=== PATIENT | female | born 1990 | race Caucasian/White ===

== ENCOUNTER → 2019-06-10 | Outpatient (CLI) | payer OTHER ==
[2019-06-10 17:42] LABS: BASO % 0.6 % (0.0-1.0); EOS % 0.4 % (0.0-3.0); HEMATOCRIT 35.8 % (36.0-47.0); HEMOGLOBIN 12.1 g/dl (12.0-15.5); LYMPH # 2.1 10^3/uL (1.5-5.0); LYMPH % 31.5 % (24.0-44.0); MEAN CORPUSCULAR HEMOGLOBIN 32.9 pg (27.0-33.0); MEAN CORPUSCULAR HGB CONC 33.8 g/dl (32.0-36.5); MEAN CORPUSCULAR VOLUME 97.3 fl (80.0-96.0); MONO # 0.5 10^3/uL (0.0-0.8); NEUTROPHILS # 4.1 10^3/uL (1.5-8.5); NEUTROPHILS % 60.2 % (36.0-66.0); PLATELET COUNT, AUTOMATED 275 10^3/uL (150-450); RED BLOOD COUNT 3.68 10^6/uL (4.00-5.40); WHITE BLOOD COUNT 6.7 10^3/uL (4.0-10.0)
[2019-06-10 18:09] LABS: ALT/SGPT 18 U/L (12-78); BILIRUBIN,TOTAL 0.2 MG/DL (0.2-1.0); CREATININE FOR GFR 0.46 MG/DL (0.55-1.30); GLOMERULAR FILTRATION RATE > 60.0 (>60); LDH LACTATE DEHYDROGENASE 149 U/L (84-246); URIC ACID 2.8 MG/DL (2.6-6.0)
[2019-06-10 18:45] LABS: TOTAL PROTEIN,RANDOM URINE 13.6 MG/DL (0.0-12.0)
[2019-06-11 10:26] LABS: RUBELLA IgG QUALITATIVE SUSCEPTIBLE (IMMUNE)
[2019-06-11 10:54] LABS: HEPATITIS C VIRUS ABY INDEX < 0.0 INDEX (<0.8)
[2019-06-11 10:56] LABS: HIV 1&2 SCREEN CENTAUR NEGATIVE (NEGATIVE)
== END ==
LOC: M PLALAB 15:18
PROVIDERS: ATTEND Advanced Practice Midwife
DX: O34.211 Maternal care for low transverse scar from previous cesarean delivery (principal); Z3A.00 Weeks of gestation of pregnancy not specified

== ENCOUNTER → 2019-09-04 | Outpatient (REF) | payer OTHER | LOC: M PLALAB 10:39 | PROVIDERS: ATTEND Advanced Practice Midwife | DX: O34.211 Maternal care for low transverse scar from previous cesarean delivery (principal) ==

== ENCOUNTER → 2019-11-04 | Outpatient (REF) | payer OTHER ==
[~2019-11-04] MED LIST: IBUP80TA PO; PERCOCET PO
== END ==
LOC: M PLALAB 15:13
PROVIDERS: ATTEND Advanced Practice Midwife
DX: O34.211 Maternal care for low transverse scar from previous cesarean delivery (principal)

== ENCOUNTER 2019-11-29 07:44 | Inpatient (IN) | payer MEDICAID, OTHER ==
[2019-11-29] VITALS (24 sets, daily range): BP systolic 104–144; BP diastolic 62–94
[~2019-11-29] VITALS: Ht 165.1 cm; Wt 94.1 kg
[2019-11-29] MEDS ORDERED: LR 1,000 ML IV SCH (08:59)
[2019-11-29 10:16] LABS: HEMATOCRIT 36.5 % (36.0-47.0); HEMOGLOBIN 12.9 g/dl (12.0-15.5); MEAN CORPUSCULAR HEMOGLOBIN 33.6 pg (27.0-33.0); MEAN CORPUSCULAR HGB CONC 35.3 g/dl (32.0-36.5); MEAN CORPUSCULAR VOLUME 95.1 fl (80.0-96.0); PLATELET COUNT, AUTOMATED 261 10^3/uL (150-450); RED BLOOD COUNT 3.84 10^6/uL (4.00-5.40); WHITE BLOOD COUNT 6.5 10^3/uL (4.0-10.0)
--- NOTE | 2019-11-29 10:59 | HPEPDOC ---
Obstetrical History & Physical General Date of Admission Nov 29, 2019 at 07:44 History of Present Illness 29-year-old 3, para 1 presents at 40 weeks 1 day estimated gestational age of 0711/28/2019 for induction of labor. Her course is been unremarkable. She initiated care first trimesters been appropriate throughout. Her history significant for severe preeclampsia, HELLP syndrome with her previous . She had a emergency section at 34 weeks for placenta abruption. She is been counseled throughout her regarding her mode of delivery. She has been counseled regarding trial labor after section versus elective repeat section and has expressed desire to proceed with trial labor after section. Chief Complaint: Induction of labor Information Provided By: Patient Age: 29 : 3 Pre-term: 1 Livin Care Care: Good Care Dating Final EDC: Nov 28, 2019 Final EDC by: LMP LMP: Mar 03, 2019 EGA at Admission: 40 Past Medical History Past Obstetrical History : Past Obstetrical History: Multigravida Type of Delivery: Ceserean section Complications: Yes (HELLP syndrome and placental abruption) Past Medical History Medical History History of kidney stones Surgical History: section Social History Marital Status: Single Psychosocial History: No pertinent psych hx * Smoker: non-smoker Alcohol: Denies Drugs: denies Allergies Coded Allergies: No Known Allergies (Verified , 11/03/09) Physical Examination Physical Examination GENERAL: Alert and oriented times three. BREAST: . ABDOMEN: Gravid and non-tender to touch. FETUS: Is vertex (VTX) by sterile vaginal examination (SVE), fetus is vertex (VTX) by Rudy. HEART RATE: Regular rate and rhythm. LUNGS: Clear to auscultation (CTA). Vital Signs/I&O Vital Signs Date Time Temp Pulse Resp B/P (MAP) Pulse Ox O2 Delivery O2 Flow Rate FiO2 11/29/19 09:29 80 18 121/82 (95) 11/29/19 08:07 97.6 Laboratory Data 24H LABS Laboratory Tests 2 11/29/19 07:53: Serology Scanned Report Hepatitis B Testing 11/29/19 09:50: Nucleated Red Blood Cells % (auto) 0.0 CBC/BMP Laboratory Tests 11/29/19 09:50 Pertinent Laboratoy Data Blood Type: A+ RBC Antibody Screen: Negative HIV: Negative Hepatitis C: Negative Rubella: Nonreactive Anatomy Ultrasound Placenta Location: Anterior Normal Anatomy: Yes Placenta Previa: No Vaginal Examination Dilation: None Station: -3 Cervical Consistency: Medium Cervical Position: Posterior Presentation: Cephalic presentation Assessment Variability: Moderate Accelerations: Positive Tocometer Contractions: Yes Frequency: irregular Assessment/Plan Assessment 29-year-old 3, para 1 at 40 weeks 1 day estimated gestational age by last which. Here for induction labor. Reassuring status. History of prior section. Patient's been thoroughly counseled regards, induction labor, also counseled patient on mode of delivery to include section versus trial labor. I discussed medications as well as procedures performed in labor and delivery. Discuss emergency surgery, blood products anesthesia and patient desires to proceed with admission and consents to the above. Plan Admit and orient. Field Gauger and consent. Diet: Nothing by mouth. Group B Streptococcus (GBS) negative. Labs and intravenous (IV) per unit protocol. Counseled on Pitocin and induction of labor (IOL). Anticipate normal spontaneous delivery (). C-S as appropriate. PINKY SUMMERS MD. Nov 29, 2019 10:59
[2019-11-29] MEDS ORDERED: OXYTOCIN DRIP 30 UNITS in IV 1 EA IV SCH (11:00)
[2019-11-29] MEDS: LR 1,000 ML IV SCH ×2 (17:31→18:54)
[2019-11-30] VITALS (63 sets, daily range): BP systolic 107–154; BP diastolic 59–100
[2019-11-30] MEDS: LR 1,000 ML IV SCH ×3 (02:54→21:09)
--- NOTE | 2019-11-30 11:34 | IPNPDOC ---
Obstetrical Progress Note Date of Service Nov 29, 2019 Subjective Late entry note 19311/29/19 Patient is doing well without complaints. Pitocin at 12 milliunits. Objective Vital Signs Date Time Temp Pulse Resp B/P (MAP) Pulse Ox O2 Delivery O2 Flow Rate FiO2 11/30/19 11:07 98.2 70 16 142/79 (100) Assessment Variability: Moderate Accelerations: Positive Heart Rate Tracing: Category I Tocometer Contractions: Yes Frequency: regular Sterile Vaginal Examination Dilation: 1cm Effacement (%): 30% Station: -3 Cervical Consistency: Medium Cervical Position: Posterior Postion/Presentation: Cephalic presentation (Cook's catheter place and 80/30 mL) Assessment and Plan Age: 29 : 3 Livin Status: Reassuring Group B Streptococcus: Negative Anticipate: Other () PINKY SUMMERS MD. Nov 30, 2019 11:34
--- NOTE | 2019-11-30 11:35 | IPNPDOC ---
Obstetrical Progress Note Date of Service Nov 30, 2019 Subjective Stuart catheter out approximately hour ago. Reports pain 6 out of 10. Objective Vital Signs Date Time Temp Pulse Resp B/P (MAP) Pulse Ox O2 Delivery O2 Flow Rate FiO2 11/30/19 11:07 98.2 70 16 142/79 (100) Assessment Variability: Moderate Accelerations: Positive Heart Rate Tracing: Category I Tocometer Contractions: Yes Frequency: regular Sterile Vaginal Examination Dilation: 3 cm Effacement (%): 70% Station: -3 (AROM clear fluid) Cervical Consistency: Medium Cervical Position: Middle Postion/Presentation: Cephalic presentation Assessment and Plan Age: 29 : 3 Term: 1 Status: Reassuring Group B Streptococcus: Negative Anticipate: Other () PINKY SUMMERS MD. Nov 30, 2019 11:35
[2019-11-30] MEDS ORDERED: BUTORPHANOL 2 MG/ML INJ (J0595) IV ONE ×2 (13:15)
[2019-11-30] MEDS ORDERED: PROMETHAZINE INJ 25 MG/ML VIAL (J2550) IV ONE ×2 (13:15)
[2019-11-30] MEDS ORDERED: FENTANYL 2MCG/ML ROPIVACAINE 0.2% IN 0.9% NACL 100ML IVBAG As Ordered ONE (16:51)
[2019-11-30] MEDS ORDERED: ONDANSETRON 4MG/2ML VIAL IV PRN ×3 (18:30→21:29)
[2019-11-30] MEDS ORDERED: FENTANYL/ROPIVACAINE/NACL BAG 100 ML EPIDURAL SCH (18:30)
[2019-11-30] MEDS ORDERED: ePHEDrine SULFATE 25 MG/5 ML(5MG/ML) SYRINGE IV PRN (18:30)
[2019-11-30] MEDS ORDERED: NALOXONE INJ 0.4MG/1ML VIAL (J2310 PER 1MG) IV PRN ×3 (18:30→21:29)
[2019-11-30] MEDS ORDERED: REFRIGERATOR IV KEYS XX PRN (18:30)
[2019-11-30] MEDS ORDERED: LACTATED RINGER'S 1000 ML IV PRN (18:30)
[2019-11-30] MEDS ORDERED: EPIDURAL/PCA KEYS XX PRN (18:30)
[2019-11-30] MEDS ORDERED: EPIDURAL COMMENT XX SCH (18:30)
[2019-11-30] MEDS ORDERED: diphenhydrAMINE 50MG/ML VIAL (J1200) IV PRN ×2 (18:30→21:29)
--- NOTE | 2019-11-30 20:29 | IPNPDOC ---
Obstetrical Progress Note Date of Service Nov 30, 2019 Subjective Comfortable now following epidural. Her last exam she was 5-6 cm, 75% efface, -3 station. Pitocin currently at 20 milliunits Objective Vital Signs Date Time Temp Pulse Resp B/P (MAP) Pulse Ox O2 Delivery O2 Flow Rate FiO2 11/30/19 18:13 97.4 75 18 120/65 (83) Assessment Heart Rate (FHR): 120 Variability: Moderate Accelerations: Positive Heart Rate Tracing: Category I Tocometer Contractions: Yes Frequency: regular Sterile Vaginal Examination Dilation: 6 cm Effacement (%): 70% Station: -3 Cervical Consistency: Soft Cervical Position: Anterior Postion/Presentation: Cephalic presentation Assessment and Plan Age: 29 : 3 Livin Status: Reassuring Group B Streptococcus: Negative Anticipate: Section Additional Comments Cervical exam unchanged after approximately 4 hours despite adequate contractions. Discussed these findings with the patient. Discussed options to include further induction with Pitocin at 20 milliunits and with reevaluation in 2 hours versus proceeding with section for arrested dilation/failed TOLAC. At the consultation. Patient desires proceed with section. Anesthesia notified and OR team mobilize PINKY SUMMERS MD. Nov 30, 2019 20:29
[2019-11-30] MEDS ORDERED: ceFAZolin SOD 2 GM in IV 1 EA IV ONE (20:45)
[2019-11-30] MEDS ORDERED: AZITHROMYCIN INJ 500 MG, VIAL MATE ADAPTER 1 EACH in D5W 250 ML IV ONE (20:45)
[2019-11-30] MEDS ORDERED: ceFAZolin 2 GM/D5W 50 ML IV BAG (J0690 PER 500MG) As Ordered ONE (20:48)
[2019-11-30] MEDS ORDERED: BICITRA 30ML SOLN UDC As Ordered ONE (20:48)
[2019-11-30] MEDS ORDERED: AZITHROMYCIN INJ 500MG VIAL (J0456 PER 500MG) As Ordered ONE (20:49)
[2019-11-30] MEDS ORDERED: MORPHINE PRES-FREE INJ 10 MG/10 ML VIAL (J2274) As Ordered ONE (20:52)
[2019-11-30] MEDS ORDERED: OXYTOCIN INJ 10 UNITS/ML VIAL (J2590) As Ordered ONE (20:53)
[2019-11-30] MEDS ORDERED: LIDOCAINE PRES-FREE 2% 10ML AMP As Ordered ONE (20:55)
[2019-11-30] MEDS ORDERED: OXYTOCIN DRIP 30 UNITS in IV 1 EA IV SCH (21:09)
--- NOTE | 2019-11-30 21:11 | ROOPDOC ---
[facility] Report Of Operation Report of Operation DATE OF PROCEDURE: 11/30/19 SURGEON: Lizbeth Clemente M.D. PARK RECREATION MANAGER:. Galileo Alejandra M.D. ANESTHESIA:, Epidural PREOPERATIVE DIAGNOSIS: 1. History of prior section 2. Intrauterine at 40weeks 3. Arrest of dilation POSTOPERATIVE DIAGNOSIS: 1. History of prior section 2. Intrauterine at 39 weeks 3. Arrest of dilation ESTIMATED BLOOD LOSS: 500 mL URINE OUTPUT: 150 mL INTRAVENOUS FLUIDS: 800 mL PREOPERATIVE ANTIBIOTICS:. 2 g of Ancef 500 mg of azithromycin OPERATIVE FINDINGS: Liveborn male infant, Apgars 8 and 9. Weight was 3910 or 8 lbs. 10 oz. SPECIMENS:. Cord blood DESCRIPTION OF PROCEDURE: After informed consent was obtained and written consent was reviewed. The patient was brought to the operating room where spinal anesthesia was placed. She was then placed in the supine position with a left lateral tilt. Stuart catheter was previously placed. Patient was then prepped and draped in the normal sterile fashion. A timeout operating room was performed identifying the patient, procedure be performed as well as drug allergies. Anesthesia was tested and deemed to be adequate. Pfannenstiel skin incision was made and this was carried down to the underlying rectus fascia. The fascia was then scored and this incision was extended bilaterally. The fascia was then dissected off the underlying rectus muscle superiorly and inferiorly. The rectus muscles were then in the midline. The peritoneum is then entered. Vesicouterine peritoneum was then tented and excised and a bladder flap was created. Mobius retractor was then placed. Next, a curvilinear incision was then made in the lower uterine segment. The head was brought to the level of the incision atraumatically and delivered along the shoulders and corpus. The cord was clamped x-2. The was brought over to the warmer with a good cry. Placenta was drained and delivered grossly intact. The uterus was cleared of all clots and debris and the uterine incision was then closed in 2 layers using 0 Vicryl, first in a running locking fashion followed by second layer for imbrication. The abdomen suctioned. Surgical sites reinspected and noted be hemostatic. The retractor was then removed. The anterior peritoneum was then reapproximated with 3-0 Vicryl. The rectus muscles were reapproximated 3-0 Vicryl. The fascia was then closed using 0 Vicryl in a running nonlocking fashion. The subcutaneous tissues was then irrigated and suctioned. Subcutaneous tissue was reapproximated using 3-0 Vicryl. Several subdermal stitch is placed using 3-0 Vicryl and the skin was closed with 4-0 Monocryl and subcuticular fashion. This incision was then cleaned and dried and was dressed. The patient was then taken to recovery in stable condition. All counts were correct. The patient has decided to name the Tahir albert My surgical consultant. played in an essential role during the operation. He assisted with tissue identification retraction, delivery of the , as well as wound closure. LIZBETH CLEMENTE MD. Nov 30, 2019 21:11
[2019-11-30] MEDS ORDERED: MOM 30ML SUSPENSION UDC PO PRN (21:15)
[2019-11-30] MEDS ORDERED: MEASLES,MUMPS,RUBELLA VACCINE INJ (MMR-II) (90707) SC SCH (21:15)
[2019-11-30] MEDS ORDERED: PERCOCET 5MG/325MG TAB PO PRN (21:15)
[2019-11-30] MEDS ORDERED: RHOGAM 300 MCG (1500 IU) INJ (J2790) IM SCH (21:15)
[2019-11-30] MEDS ORDERED: dexameTHASONE 4 MG/ML 1ML VIAL (J1100 PER 1MG) As Ordered ONE (21:19)
[2019-11-30] MEDS ORDERED: ONDANSETRON 4MG/2ML VIAL As Ordered ONE (21:19)
[2019-11-30] MEDS ORDERED: NALBUPHINE HCL 10 MG/ML AMP (J2300) IV PRN (21:29)
[2019-11-30] MEDS ORDERED: METOCLOPRAMIDE INJ 10MG/2ML VIAL (J2765 PER 1) IV PRN ×2 (21:29→22:00)
[2019-11-30] MEDS ORDERED: oxyCODONE 5MG TAB PO PRN (22:00)
[2019-11-30] MEDS ORDERED: LR 1,000 ML IV SCH (22:00)
[2019-11-30] MEDS ORDERED: fentaNYL 100 MCG/2 ML INJECTION (J3010) IV PRN (22:00)
[2019-11-30] MEDS ORDERED: OXYTOCIN 30 UNITS IN 0.9% NaCl 500ML IV BAG (J2590) As Ordered ONE (22:20)
[2019-11-30] MEDS ORDERED: PERCOCET 5MG/325MG TAB As Ordered ONE (22:32)
[2019-11-30] MEDS: PERCOCET 5MG/325MG TAB PO PRN (22:35)
[2019-12-01] VITALS (9 sets, daily range): BP systolic 115–138; BP diastolic 64–87
[2019-12-01] MEDS: KETOROLAC 30 MG/ML 1ML VIAL IV SCH ×4 (00:04→18:01)
[2019-12-01] MEDS: LR 1,000 ML IV SCH (05:00)
--- NOTE | 2019-12-01 07:43 | IPNPDOC ---
Progress Note Date of Service: Dec 01, 2019 Day#: 1 Progress Note SUBJECT: Doing well without complaints. Ambulating and pain is well-controlled. Reports minimal lochia. OBJECTIVE: VITAL SIGNS: Within normal limits, afebrile. Alert and oriented times three. Abdomen: Fundus firm at U-2. Soft, NTTP. Incision: Dressed Ext: neg calf tenderness. ASSESSMENT: Postoperative/ day #1 status post repeat section. Recovering in stable condition. PLAN: 1. Continue routine postoperative/ care 2. Discharge plans for tomorrow VS, I&O, 24H, Fishbone Vital Signs/I&O Vital Signs Date Time Temp Pulse Resp B/P (MAP) Pulse Ox O2 Delivery O2 Flow Rate FiO2 12/01/19 06:00 98.1 71 18 127/77 (94) 96 Room Air I&O- Last 24 Hours up to 6 AM 12/01/19 06:00 Intake Total 5004 ml Output Total 4700 ml Balance 304 ml PINKY SUMMERS MD. Dec 01, 2019 07:43
[2019-12-01 07:46] LABS: HEMATOCRIT 32.8 % (36.0-47.0); HEMOGLOBIN 11.2 g/dl (12.0-15.5); MEAN CORPUSCULAR HEMOGLOBIN 33.6 pg (27.0-33.0); MEAN CORPUSCULAR HGB CONC 34.1 g/dl (32.0-36.5); MEAN CORPUSCULAR VOLUME 98.5 fl (80.0-96.0); PLATELET COUNT, AUTOMATED 227 10^3/uL (150-450); RED BLOOD COUNT 3.33 10^6/uL (4.00-5.40); WHITE BLOOD COUNT 15.6 10^3/uL (4.0-10.0)
[2019-12-01] MEDS ORDERED: PERCOCET PO (07:48)
[2019-12-01] MEDS ORDERED: IBUP80TA PO (07:48)
[2019-12-01] MEDS: DOCUSATE SODIUM 100 MG CAP PO SCH ×2 (10:06→19:49)
[2019-12-01] MEDS: PRENATAL VITAMINS CHEWABLE TABLET PO SCH (10:06)
[2019-12-02 02:00] VITALS: BP 112/56
[2019-12-02] MEDS: IBUPROFEN 800 MG TAB PO SCH ×2 (02:08→11:34)
[2019-12-02 06:00] VITALS: BP 127/80
[2019-12-02] MEDS: PRENATAL VITAMINS CHEWABLE TABLET PO SCH (08:20)
[2019-12-02] MEDS: DOCUSATE SODIUM 100 MG CAP PO SCH (08:20)
[2019-12-02] MEDS: PERCOCET 5MG/325MG TAB PO PRN (11:42)
[2019-12-02 15:00] VITALS: BP 121/82
[2019-12-02 15:30] VITALS: BP 129/86
[2019-12-02 16:30] VITALS: BP 131/78
== END 2019-12-02 17:30 | disposition home or self-care (01) | DRG 540 ==
LOC: M LDI 07:44 → M OBS 11-30 23:40
PROVIDERS: ADMIT Advanced Practice Midwife; ATTEND Obstetrics & Gynecology
PROC: 3E033VJ Introduction of Other Hormone into Peripheral Vein, Percutaneous Approach (ICD-10-PCS; 2019-11-29)
PROC: 10D00Z1 Extraction of Products of Conception, Low, Open Approach (ICD-10-PCS; principal; 2019-11-30 20:26)
DX: O34.211 Maternal care for low transverse scar from previous cesarean delivery (principal); Z3A.40 40 weeks gestation of pregnancy; O66.41 Failed attempted vaginal birth after previous cesarean delivery; O62.0 Primary inadequate contractions; Z37.0 Single live birth